=== PATIENT | female | born 1935 | race American Indian/Alaskan Native ===

== ENCOUNTER 2016-08-25 14:40 | Observation (INO) | payer MEDICARE, BC ==
--- NOTE | 2016-08-25 15:43 | C.PDOC ---
History Of Present Illness Pt is a 81 y/o female with Hx of High Cholesterol, DM and HTN presents to ED sent by PMD (Dr. Chacon) for low blood sugar. Patient was brought to ED by BLS. Pt was at PMD's office today for routine injection of B-12 and while at office her fingerstick was 35. Pt felt very weak at the time. Pt was given a candy bar to raise blood sugar by PMD. At ED patient complaints of weakness and feeling "feverish" yesterday with a slight cough. Patient reports last use of diabetes medication was yesterday (Glipizide). Patient denies N/V/D, numbness or any other complaints at this time. PMD: Dr. Lopez. Time Seen by Provider: 08/25/16 15:21 Chief Complaint (Nursing): Weakness/Neurological Deficit History Per: Patient History/Exam Limitations: no limitations Onset/Duration Of Symptoms: Hrs Current Symptoms Are (Timing): Still Present Past Medical History Reviewed: Historical Data, Nursing Documentation, Vital Signs Vital Signs: Last Vital Signs Temp 98.0 F 08/25/16 14:49 Pulse 58 L 08/25/16 16:34 Resp 22 08/25/16 16:34 BP 150/57 L 08/25/16 16:34 Pulse Ox 100 08/25/16 17:47 - Medical History PMH: Diabetes, HTN, Hypercholesterolemia, Hyperlipidemia Surgical History: Back Surgery Family History: States: Diabetes, Hypertension - Social History Hx Tobacco Use: No Hx Alcohol Use: No Hx Substance Use: No - Immunization History Hx Tetanus Toxoid Vaccination: No Review Of Systems Except As Marked, All Systems Reviewed And Found Negative. Constitutional: Positive for: Fever, Weakness Cardiovascular: Negative for: Chest Pain Respiratory: Positive for: Cough. Negative for: Shortness of Breath Gastrointestinal: Negative for: Nausea, Vomiting, Diarrhea Skin: Negative for: Rash Neurological: Negative for: Numbness, Headache Physical Exam - Physical Exam Appears: Non-toxic, No Acute Distress Skin: Normal Color, Warm Head: Atraumatic, Normacephalic Eye(s): bilateral: Normal Inspection, EOMI Ear(s): Bilateral: Normal Nose: Normal Oral Mucosa: Moist Tongue: Normal Appearing Teeth: Normal Dentition Throat: Normal Neck: Normal ROM Lymphatic: Deferred Chest: Symmetrical Cardiovascular: Rhythm Regular Respiratory: Other (Crackles to lung bases bilaterally ) Gastrointestinal/Abdominal: No Tenderness, No Guarding, No Rebound, Other ( Healing skin infection on abdomen) Back: Normal Inspection Extremity: Normal ROM, Capillary Refill (<2 seconds) Extremity: Bilateral: Atraumatic Pulses: Left Radial: Normal, Right Radial: Normal Neurological/Psych: Oriented x3, Normal Speech, Normal Cognition ED Course And Treatment - Laboratory Results Result Diagrams: 08/25/16 16:08 08/25/16 16:08 O2 Sat by Pulse Oximetry: 100 (RA) Pulse Ox Interpretation: Normal Medical Decision Making Medical Decision Making: Initial Impression: Hypoglycemia Differential Diagnosis: Includes but not limited to: reaction to oral hypoglycemic agent, hypoglycemia due to infection Plan: Check labs, Observe Progress note: 6:00 PM - I spoke to PMD Dr. Lopez. She recommends starting D5W at 50 ml/hr and admit for observation care. Also, lab was called and the lab says potassium was hemolyzed. Disposition - Disposition Disposition: HOSPITALIZED Disposition Time: 17:43 Condition: FAIR - POA Present On Arrival: None - Clinical Impression Clinical Impression: Hypoglycemia secondary to sulfonylurea - Scribe Statement The provider has reviewed the documentation as recorded by the Scribe Clayton Morales All medical record entries made by the Scribe were at my direction and personally dictated by me. I have reviewed the chart and agree that the record accurately reflects my personal performance of the history, physical exam, medical decision making, and the department course for this patient. I have also personally directed, reviewed, and agree with the discharge instructions and disposition. Decision To Admit - Pt Status Changed To: Hospital Disposition Of: Observation - . Bed Request Type: Regular Admitting Physician: Ace Chacon Patient Diagnosis: Hypoglycemia secondary to sulfonylurea
[2016-08-25 16:13] LABS: BASO # 0.1 K/uL (0.0-0.2); BASO % 0.9 % (0.0-2.0); EOS # 0.2 K/uL (0.0-0.7); EOS % 3.6 % (0.0-4.0); HEMATOCRIT 37.5 % (34.0-47.0); LYMPH # 2.3 K/uL (1.0-4.3); LYMPH % 39.6 % (20.0-40.0); MEAN CELL VOLUME 88.4 fL (81.0-99.0); MEAN CORPUSCULAR HEMOGLOBIN 28.8 pg (27.0-31.0); MEAN CORPUSCULAR HGB CONC 32.6 g/dL (33.0-37.0); MEAN PLATELET VOLUME 9.4 fL (7.2-11.7); MONO # 0.4 K/uL (0.0-0.8); MONO % 7.7 % (0.0-10.0); NRBC % 0.1 % (0.0-2.0); RED CELL DISTRIBUTION WIDTH 15.1 % (11.5-14.5); WHITE BLOOD COUNT 5.8 K/uL (4.8-10.8)
[2016-08-25 16:19] LABS: VENOUS BLOOD GAS BASE EXCESS -1.4 mmol/L (0.0-2.0); VENOUS BLOOD GAS PCO2 49 mmHg (40-60); VENOUS BLOOD PH 7.32 (7.32-7.43)
[2016-08-25 16:22] LABS: CHLORIDE 101 mmol/L (98-107); POTASSIUM 5.6 mmol/L (3.6-5.2); SODIUM 136 mmol/L (132-148)
[2016-08-25 16:24] LABS: GFR AFRICAN-AMERICAN > 60
[2016-08-25 16:25] LABS: ALKALINE PHOSPHATASE 76 U/L (38-126); AST/SGOT 47 U/L (14-36); BILIRUBIN,TOTAL 1.8 mg/dL (0.2-1.3); BLOOD UREA NITROGEN 23 mg/dL (7-17); CALCIUM 8.9 mg/dl (8.6-10.4); CARBON DIOXIDE 20 mmol/L (22-30); GLUCOSE,RANDOM 87 mg/dL (65-105); MAGNESIUM 1.7 mg/dL (1.6-2.3); PHOSPHOROUS 3.4 mg/dL (2.5-4.5); TOTAL PROTEIN 9.1 g/dL (6.3-8.3)
[2016-08-25 16:26] LABS: ALT/SGPT 6 U/L (9-52)
--- NOTE | 2016-08-25 16:45 | RAD ---
HISTORY: weakness COMPARISON: No prior. FINDINGS: LUNGS: No active pulmonary disease. PLEURA: Nonspecific elevation of right hemidiaphragm. No evidence of pleural effusion or pneumothorax. CARDIOVASCULAR: Normal. OSSEOUS STRUCTURES: No significant abnormalities. VISUALIZED UPPER ABDOMEN: Normal. OTHER FINDINGS: None. IMPRESSION: No active disease.
[2016-08-25] MEDS ORDERED: Sod Polystyrene Sulf 15 gm/60 ml Oral Susp ONE (21:29)
[2016-08-25] MEDS ORDERED: Sod Polystyrene Sulf 15 gm/60 ml Oral Susp PO ONE (21:38)
[2016-08-26] MEDS ORDERED: Pantoprazole 40 mg EC Tab PO STA (00:45)
[2016-08-26] MEDS ORDERED: Sod Polystyrene Sulf 15 gm/60 ml Oral Susp PO ONE (02:00)
[2016-08-26 06:53] LABS: CHLORIDE 105 mmol/L (98-107); POTASSIUM 3.6 mmol/L (3.6-5.2); SODIUM 140 mmol/L (132-148)
[2016-08-26 06:55] LABS: GFR AFRICAN-AMERICAN > 60
[2016-08-26 06:56] LABS: ALKALINE PHOSPHATASE 53 U/L (38-126); ALT/SGPT 22 U/L (9-52); AST/SGOT 19 U/L (14-36); BILIRUBIN,TOTAL 0.5 mg/dL (0.2-1.3); BLOOD UREA NITROGEN 21 mg/dL (7-17); CARBON DIOXIDE 24 mmol/L (22-30); GLUCOSE,RANDOM 85 mg/dL (65-105); TOTAL PROTEIN 6.9 g/dL (6.3-8.3)
[2016-08-26 06:57] LABS: CALCIUM 8.8 mg/dl (8.6-10.4)
[2016-08-26 07:10] LABS: BASO % 0.5 % (0.0-2.0); EOS # 0.2 K/uL (0.0-0.7); HEMATOCRIT 34.9 % (34.0-47.0); LYMPH # 1.6 K/uL (1.0-4.3); LYMPH % 36.1 % (20.0-40.0); MEAN CELL VOLUME 88.4 fL (81.0-99.0); MEAN CORPUSCULAR HGB CONC 32.8 g/dL (33.0-37.0); MEAN PLATELET VOLUME 8.6 fL (7.2-11.7); MONO # 0.4 K/uL (0.0-0.8); MONO % 9.8 % (0.0-10.0); RED CELL DISTRIBUTION WIDTH 14.7 % (11.5-14.5); WHITE BLOOD COUNT 4.3 K/uL (4.8-10.8)
[2016-08-26] MEDS ORDERED: Home Med 1 UNIT (Meloxicam [Mobic] 15 MG) PO SCH (10:00)
--- NOTE | 2016-08-26 11:17 | CARD ---
APPROVED REPORT EKG Measurement Heart [id number] <Conclusion> Normal sinus rhythm Left ventricular hypertrophy with repolarization abnormality Abnormal ECG
[2016-08-26] MEDS: Enoxaparin 40 mg Syringe SC SCH (11:31)
[2016-08-26] MEDS: Pantoprazole 20 mg EC Tab PO SCH (11:31)
--- NOTE | 2016-08-26 21:56 | CP.PCM.HP ---
History of Present Illness - History of Present Illness History of Present Illness: A 81 yr old female with hx of DM, HTN ,OA, vitamin b12 def ,HLD, kyphosis is here sent to ER as she found to be oozy in office ,found to be with BS 35,given sugar and candy went up to 60. as per patient she took glipizide 1 day ago,started noticing BS going down night before,she held diabetic meds. in ER found to be hyperkalemic, and BS went is been on low side ,admitted for observation. Present on Admission - Present on Admission Any Indicators Present on Admission: No Review of Systems - Constitutional Constitutional: Headache. absent: Chills, Fever, Increased Appetite, Weight Loss - EENT Eyes: absent: Other Visual Disturbances Nose/Mouth/Throat: absent: Nasal Congestion, Dysphagia, Sore Throat - Breasts Breasts: absent: Mass - Cardiovascular Cardiovascular: absent: Chest Pain, Dyspnea, Leg Edema, Lightheadedness - Respiratory Respiratory: absent: Cough, Dyspnea, Chest Congestion, Excessive Mucous Production - Gastrointestinal Gastrointestinal: absent: Abdominal Pain, Constipation, Diarrhea, Nausea, Vomiting - Genitourinary Genitourinary: absent: Urinary Frequency, Freq UTI - Musculoskeletal Musculoskeletal: Arthralgias, Back Pain, Deformity, Limited Range of Motion, Myalgias - Integumentary Integumentary: absent: Changing Lesions, Pruritus, Sores - Neurological Neurological: absent: Focal Weakness, Paresthesias, Weakness - Psychiatric Psychiatric: Difficulty Concentrating. absent: Behavioral Changes - Endocrine Endocrine: absent: Fatigue, Palpitations, Polydipsia - Hematologic/Lymphatic Hematologic: absent: Lymphadenopathy Past Patient History - Infectious Disease Hx of Infectious Diseases: None - Past Medical History & Family History Past Medical History?: Yes - Past Social History Smoking Status: Never Smoked - CARDIAC Hx Hypercholesterolemia: Yes Hx Hypertension: Yes - NEUROLOGICAL Hx Neurological Disorder: No - HEENT Hx HEENT Problems: No - RENAL Hx Chronic Kidney Disease: No - ENDOCRINE/METABOLIC Hx Endocrine Disorders: Yes Hx Diabetes Mellitus Type 2: Yes - HEMATOLOGICAL/ONCOLOGICAL Hx Blood Disorders: Yes Other/Comment: B12 Deficiency - INTEGUMENTARY Hx Dermatological Problems: No - MUSCULOSKELETAL/RHEUMATOLOGICAL Hx Falls: No - GASTROINTESTINAL Hx Gastrointestinal Disorders: No - GENITOURINARY/GYNECOLOGICAL Hx Genitourinary Disorders: No - PSYCHIATRIC Hx Substance Use: No - SURGICAL HISTORY Hx Surgeries: Yes Hx Orthopedic Surgery: Yes (bilat knees) - ANESTHESIA Hx Anesthesia: Yes Hx Anesthesia Reactions: No Hx Malignant Hyperthermia: No Has any member of the family had a problem w/ anesthesia?: No Meds Allergies/Adverse Reactions: Allergies Allergy/AdvReac Type Severity Reaction Status Date / Time No Known Allergies Allergy Verified 08/25/16 15:14 Physical Exam - Constitutional Appears: No Acute Distress - Head Exam Head Exam: ATRAUMATIC, NORMAL INSPECTION - Eye Exam Eye Exam: EOMI, Periorbital tenderness Pupil Exam: PERRL - ENT Exam ENT Exam: Mucous Membranes Moist, Normal Exam - Neck Exam Neck exam: Negative for: Lymphadenopathy - Respiratory Exam Respiratory Exam: Clear to Auscultation Bilateral, NORMAL BREATHING PATTERN. absent: Rhonchi, Wheezes - Cardiovascular Exam Cardiovascular Exam: REGULAR RHYTHM, +S1, +S2, Systolic Murmur - GI/Abdominal Exam GI & Abdominal Exam: Normal Bowel Sounds, Soft. absent: Guarding, Tenderness - Extremities Exam Extremities exam: Positive for: normal inspection, pedal pulses present. Negative for: pedal edema - Back Exam Back exam: paraspinal tenderness Additional comments: positive for hunch back - Neurological Exam Neurological exam: Alert, Oriented x3 Additional comments: uses cane - Psychiatric Exam Psychiatric exam: Normal Mood - Skin Skin Exam: Intact Results - Vital Signs Recent Vital Signs: Last Vital Signs Temp 97.7 F 08/26/16 15:00 Pulse 68 08/26/16 15:00 Resp 20 08/26/16 15:00 BP 140/73 08/26/16 15:00 Pulse Ox 95 08/26/16 15:00 - Labs Result Diagrams: 08/26/16 06:22 08/26/16 06:22 Labs: Laboratory Results - last 24 hr 08/25/16 08/26/16 08/26/16 23:50 02:23 06:22 WBC 4.3 L RBC 3.95 Hgb 11.4 Hct 34.9 MCV 88.4 MCH 29.0 MCHC 32.8 L RDW 14.7 H Plt Count 211 MPV 8.6 Neut % (Auto) 49.6 L Lymph % (Auto) 36.1 Swain % (Auto) 9.8 Eos % (Auto) 4.0 Baso % (Auto) 0.5 Neut # 2.1 Lymph # 1.6 Swain # 0.4 Eos # 0.2 Baso # 0.0 Sodium Potassium Chloride Carbon Dioxide Anion Gap BUN Creatinine Est GFR ( Amer) Est GFR (Non-Af Amer) POC Glucose (mg/dL) 79 109 Random Glucose Calcium Total Bilirubin AST ALT Alkaline Phosphatase Total Protein Albumin Globulin Albumin/Globulin Ratio 08/26/16 08/26/16 08/26/16 06:22 06:31 09:48 WBC RBC Hgb Hct MCV MCH MCHC RDW Plt Count MPV Neut % (Auto) Lymph % (Auto) Swain % (Auto) Eos % (Auto) Baso % (Auto) Neut # Lymph # Swain # Eos # Baso # Sodium 140 Potassium 3.6 Chloride 105 Carbon Dioxide 24 Anion Gap 14 BUN 21 H Creatinine 0.9 Est GFR ( Amer) > 60 Est GFR (Non-Af Amer) > 60 POC Glucose (mg/dL) 91 145 H Random Glucose 85 Calcium 8.8 Total Bilirubin 0.5 AST 19 ALT 22 Alkaline Phosphatase 53 Total Protein 6.9 Albumin 3.5 D Globulin 3.4 Albumin/Globulin Ratio 1.0 08/26/16 08/26/16 08/26/16 12:01 17:04 20:06 WBC RBC Hgb Hct MCV MCH MCHC RDW Plt Count MPV Neut % (Auto) Lymph % (Auto) Swain % (Auto) Eos % (Auto) Baso % (Auto) Neut # Lymph # Swain # Eos # Baso # Sodium Potassium Chloride Carbon Dioxide Anion Gap BUN Creatinine Est GFR ( Amer) Est GFR (Non-Af Amer) POC Glucose (mg/dL) 306 H 164 H 218 H Random Glucose Calcium Total Bilirubin AST ALT Alkaline Phosphatase Total Protein Albumin Globulin Albumin/Globulin Ratio - EKG Data EKG Interpreted by: Other EKG shows normal: Sinus rhythm Rate: Normal Assessment & Plan (1) Hypoglycemia secondary to sulfonylurea Assessment and Plan: iv D5 at 60 cc\hr hold all diabetic meds accuchecks q2 hr ,if >200 x2 change to 3 hrs neurochecks Status: Acute (2) Essential (primary) hypertension Assessment and Plan: continue meds hold losartan due to hyperkalemia Status: Chronic (3) Type 2 diabetes mellitus without complications Assessment and Plan: ACCUCHECKS FOR NOW. Status: Chronic (4) Hyperkalemia Status: Acute Decision To Admit - Pt Status Changed To: Hospital Disposition Of: Observation - . Bed Request Type: Regular Admitting Physician: Ace Chacon
[2016-08-27] MEDS: Pantoprazole 20 mg EC Tab PO SCH (09:54)
[2016-08-27] MEDS: Enoxaparin 40 mg Syringe SC SCH (09:54)
[2016-08-27 09:56] VITALS: BP 140/70; RESP 18; TEMP 97.5
[2016-08-27] MEDS ORDERED: Metoprolol Succinate 100 mg XL Tab PO SCH (10:00)
--- NOTE | 2016-08-27 15:51 | CP.PCM.PN ---
Subjective - Date & Time of Evaluation Date of Evaluation: 08/27/16 Time of Evaluation: 15:51 - Subjective Subjective: Alert, orientedx3, NAD. Objective - Vital Signs/Intake and Output Vital Signs (last 24 hours): Temp Pulse Resp BP Pulse Ox 97.5 F L 74 18 140/70 98 08/27/16 08:00 08/27/16 08:00 08/27/16 08:00 08/27/16 08:00 08/27/16 08:00 - Medications Medications: Current Medications Amlodipine Besylate (Norvasc) 10 mg PO DAILY [facility] Last Admin: 08/27/16 09:54 Dose: 10 mg Aspirin (Aspirin Chewable) 81 mg PO DAILY [facility] Last Admin: 08/27/16 09:53 Dose: 81 mg Enoxaparin Sodium (Lovenox) 40 mg SC DAILY [facility] Last Admin: 08/27/16 09:54 Dose: 40 mg Metoprolol Succinate (Toprol Xl) 100 mg PO DAILY [facility] Last Admin: 08/27/16 09:54 Dose: 100 mg Pantoprazole Sodium (Protonix Ec Tab) 20 mg PO DAILY [facility] Last Admin: 08/27/16 09:54 Dose: 20 mg Tramadol HCl (Ultram) 50 mg PO TID PRN PRN Reason: Pain, moderate (4-7) - Labs Labs: 08/26/16 06:22 08/26/16 06:22 Assessment and Plan - Assessment and Plan (Free Text) Assessment: Patient admitted with hypoglycemia, seen and examined. Alert and orientedx3, no sob or chest pains. Able to walk without help, refused any home physical therapy or assistance. Planning to drive home after discharge. D/W DR Chacon, plan to discharge home today, advised to discontinue the glipizide and cotinue with metformin. Advised to f/u in the office in 1 week.
[2016-08-27 16:10] VITALS: PULSE 68; O2SAT 95
== END 2016-08-27 17:09 | disposition home or self-care (01) ==
LOC: C.ER 14:40 → C.9E 17:42 → C.5T 20:27
PROVIDERS: ADMIT Internal Medicine; ATTEND Internal Medicine
DX: E11.649 Type 2 diabetes mellitus with hypoglycemia without coma (principal); E78.00 Pure hypercholesterolemia, unspecified; E78.5 Hyperlipidemia, unspecified; E87.5 Hyperkalemia; I10 Essential (primary) hypertension; M40.209 Unspecified kyphosis, site unspecified; Z79.4 Long term (current) use of insulin
CPT/HCPCS: 36415; 71010; 80053; 82803; 82948; 83735; 83880; 84100; 84484; 85025; 87040; 93005; 97116; 97162; 99285; G0378; G8978; G8979; J1650; J7060